=== PATIENT | female | born 1970 | race Caucasian/White ===

== ENCOUNTER 2019-12-18 00:19 | Outpatient (CLI) | payer BC, SELFPAY ==
[2019-12-18 18:42] LABS: SARS-CoV-2 RNA PCR Negative
== END 2019-12-18 00:20 | disposition home or self-care (01) ==
LOC: ANHCOVIDDT 00:19
PROVIDERS: PCP Family Medicine; Visit Provider Internal Medicine Gastroenterology
DX: Z01.812 Encounter for preprocedural laboratory examination (principal); Z20.828 Contact with and (suspected) exposure to other viral communicable diseases
CPT/HCPCS: 87635; C9803; U0003

== ENCOUNTER 2019-12-20 01:05 | Day surgery (SDC) | payer BC, SELFPAY ==
[2019-12-13 12:10] VITALS: BMI 25.4
[2019-12-20 07:39] VITALS: BP 119/77; PULSE 70; RESP 20; TEMP 36; O2SAT 99; BMI 24.9
--- NOTE | 2019-12-20 07:52 | PM.HPGS ---
History of Present Illness History of Present Illness Consent: Risks, benefits, and alternatives have been discussed and questions answered. Patient agrees to proceed with procedure. Chief complaint: Neoplasm Screening Narrative: Brendan Bishop is a 49 year old female referred for screening colonoscopy. Meds Home Medications and Allergies Home Medications Medication Instructions Recorded Confirmed Type ergocalciferol (vitamin D2) 50,000 unit PO WEEKLY 12/13/19 12/20/19 History estradiol 1 mg PO DAILY 12/13/19 12/20/19 History multivitamin,vl-[id number] 1 tablet PO DAILY 12/13/19 12/20/19 History [Complete Multivitamin] sertraline 50 mg PO DAILY 12/13/19 12/20/19 History valacyclovir 500 mg PO DAILY 12/13/19 12/20/19 History Allergies Allergy/AdvReac Type Severity Reaction Status Date / Time codeine Allergy Mild Headache Verified 12/20/19 07:43 Vital Signs Vital Signs - 24 hr 12/20/19 07:39 Temperature 36.0 C L Pulse Rate 70 Respiratory Rate 20 Blood Pressure 119/77 Pulse Oximetry 99 Exam Resp: Auscultation: clear to auscultation bilaterally Cardio: Rate: regular rate Rhythm: regular rhythm GI: GI Palp: Yes Soft to palpation and No Tenderness to palpation present (GI) Assessment and Plan Assessment and plan (1) Colon cancer screening: Code(s): Z12.11 - Encounter for screening for malignant neoplasm of colon Status: Acute Assessment and Plan: Colonoscopy with possible biopsy or polypectomy or cautery or injection of substances.
[2019-12-20] MEDS: LACTATED RINGERS 1,000 ML 150 ML IV CONT (07:59)
--- NOTE | 2019-12-20 08:18 | P.PNAN_ITS ---
Anes - Initial Pre Proc Eval Procedure: Operation Date: 12/20/19 08:30 Proposed Procedures p Screening Colonoscopy - Tony Delcid MD Date/Time: 12/20/19 08:18 Surgeon: Tony Delcid MD Pre Op Diagnosis: Neoplasm Screening Patient Data Age: 49 Gender: F Height: 5 ft 8 in Weight: 74.3 kg Last Vital Signs Temp 96.8 F L 12/20/19 07:39 Pulse 70 12/20/19 07:39 Resp 20 12/20/19 07:39 BP 119/77 12/20/19 07:39 Pulse Ox 99 12/20/19 07:39 Allergies Allergy/AdvReac Type Severity Reaction Status Date / Time codeine Allergy Mild Headache Verified 12/20/19 07:43 Home Medications Medication Instructions Recorded Confirmed Type ergocalciferol (vitamin D2) 50,000 unit PO WEEKLY 12/13/19 12/20/19 History estradiol 1 mg PO DAILY 12/13/19 12/20/19 History multivitamin,cl-rnti-[id number] 1 tablet PO DAILY 12/13/19 12/20/19 History [Complete Multivitamin] sertraline 50 mg PO DAILY 12/13/19 12/20/19 History valacyclovir 500 mg PO DAILY 12/13/19 12/20/19 History Patient hx anesthesia problems: none Family hx anesthesia problems: none [facility] Past Medical History Medical History (Updated 12/20/19 @ 08:18 by Kasi Jreome MD) Arthritis Anes - Eval Final PreProcedure Day of Procedure 12/20/19 08:18 Patient weight: normal Heart: regular rate and rhythm Lungs: clear to auscultation Airway: Mallampati scale class II Neurological: alert and oriented Last oral intake: >/= 8 hours ASA classification: II Emergent: no Anesthetic plan: proceed Anesthesia type and monitoring: general GIVS and standard monitoring Informed Consent: The patient's anesthetic plan and its attendant risks and benefits were discussed with the patient/family/POA. Questions were solicited and answers provided to the satisfaction of the patient/family/POA.
[2019-12-20 08:47] VITALS: BP 88/60; PULSE 56; RESP 16; O2SAT 98
[2019-12-20 08:57] VITALS: BP 94/74; PULSE 54; RESP 16; O2SAT 98
== END 2019-12-20 09:31 | disposition home or self-care (01) ==
PROVIDERS: PCP Family Medicine; Referring Provider Obstetrics & Gynecology Gynecology; Visit Provider Internal Medicine Gastroenterology
PROC: 0DJD8ZZ Inspection of Lower Intestinal Tract, Via Natural or Artificial Opening Endoscopic (ICD-10-PCS; CPT 45378; principal; 2019-12-20 08:30)
DX: Z12.11 Encounter for screening for malignant neoplasm of colon (principal); K57.30 Diverticulosis of large intestine without perforation or abscess without bleeding; M19.90 Unspecified osteoarthritis, unspecified site; Z79.899 Other long term (current) drug therapy
CPT/HCPCS: G0121; J2704; J7120

== ENCOUNTER 2023-05-08 10:29 | Emergency (ER) | payer BC, SELFPAY ==
--- NOTE | 2023-05-08 10:41 | ED.GENADULT ---
HPI - General Adult General Chief complaint: Upper Respiratory Infection Stated complaint: sorethroat Source: patient, RN notes reviewed and old records reviewed Mode of arrival: ambulatory Limitations: no limitations History of Present Illness HPI narrative: 53-year-old female presents to [facility] with complaint of myalgias and general malaise started on Monday, then sore throat and congestion started Monday. patient states felt feverish but never took her temperature. Patient has not taken anything for symptoms. Patient states worried may have COVID. MD complaint: sore throat Onset (ago): day(s) (2) Related Data Home Medications Medication Instructions Recorded Confirmed ergocalciferol (vitamin D2) 1,250 50,000 unit PO WEEKLY 12/13/19 05/08/23 mcg (50,000 unit) capsule estradiol 1 mg tablet 1 mg PO DAILY 12/13/19 05/08/23 multivitamin,bq-exmf-bpmilqtj 1 tablet PO DAILY 12/13/19 05/08/23 (Complete Multivitamin tablet) sertraline 50 mg tablet 50 mg PO DAILY 12/13/19 05/08/23 valacyclovir 500 mg tablet 500 mg PO DAILY 12/13/19 05/08/23 cetirizine 10 mg tablet (Zyrtec) 10 mg PO DAILY 05/08/23 05/08/23 Allergies Allergy/AdvReac Type Severity Reaction Status Date / Time codeine Allergy Mild Headache Verified 05/08/23 10:45 Review of Systems Constitutional: Constitutional: Reports no additional constitutional complaints, Reports body ache(s), Denies chills, Reports fatigue, Reports fever(s) ( patient states feeling feverish) and Denies headache(s) Eyes: Eyes: Reports no additional eye complaints and Denies blurry vision ENT: Reports system reviewed and no additional complaints, except as documented, Denies vertigo, Denies dizziness, Denies ear discharge, Denies otalgia, Denies facial pain, Denies headache(s), Reports nasal congestion, Denies nasal discharge, Denies sinus pain, Denies sinus pressure and Reports sore throat Cardiovascular: Cardiovascular: Reports no additional cardiovascular complaints, Denies chest pain, Denies chest pain at rest, Denies rapid heart rate and Denies dyspnea Respiratory: Respiratory: Reports no additional respiratory complaints, Denies chest congestion, Reports cough, Denies pain on inspiration, Denies pain with cough and Denies dyspnea Gastrointestinal: Gastrointestinal: Denies abdominal pain, Denies diarrhea, Denies nausea and Denies vomiting Integumentary/Breasts: Skin/Breast: Denies rash Neurologic: Reports system reviewed and no additional complaints, except as documented, Denies vertigo, Denies dizziness and Denies headache(s) Endocrine: Endocrine: Denies fatigue PMFSH Past Medical History Medical History Arthritis Comments At the time of my signature, I reviewed and agree with the nursing past medical, surgical, social, and family history. There is no relevant family history pertinent to the patient complaint. Exam Const: General: cooperative, healthy appearing, no acute distress and well nourished Nutritional Appearance: well nourished Orientation/consciousness: patient oriented x3 Limitations: no limitations HENMT: Head: normal to inspection and normocephalic Ears: external ears normal, TM's normal bilaterally, mastoids normal and Abnormal EAC present Face/Nose/Sinus: normal facial exam Face and sinus: normal facial exam Mouth: Yes Normal oral and palatal mucosa present, Yes oropharynx normal and Yes moist mucous membranes Throat: tonsils normal, uvula midline, posterior oropharynx abnormal erythema and no uvular edema Eyes: General: appearance normal, both eyes and all related structures Sclera: sclerae normal Pupils: Equal, round and reactive pupils present Resp: Effort & Inspection: normal respiratory effort, able to speak in complete sentences, no audible wheezes, no cough, no respiratory distress and no retractions Auscultation: clear to auscultation bilaterally, no crackles, no rales, no rhonchi and
[2023-05-08 10:44] VITALS: BP 119/68; PULSE 68; RESP 18; TEMP 36.3; O2SAT 97
== END 2023-05-08 11:05 | disposition home or self-care (01) ==
PROVIDERS: Emergency Provider Registered Nurse; PCP Family Medicine
DX: U07.1 COVID-19 (principal); J45.909 Unspecified asthma, uncomplicated
CPT/HCPCS: 87081; 87426; 87804; 87880; 99213; C9803; G0463

== ENCOUNTER 2024-06-03 17:42 | Emergency (ER) | payer BC, SELFPAY ==
--- OUTSIDE RECORDS SUMMARY | 2024-06-03 18:20 | XMS_ITS ---
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 Past Plans No past plan information found. Radiation Treatments * No radiation treatments are documented for this patient in [facility]. Treatments may have been administered in another system. Lifetime Dose Tracking * Chemical Lifetime Dose Automatic Entry Manual Entr y DLP 9,024 mGycm 9,024 mGycm 0 mGycm
--- OUTSIDE RECORDS SUMMARY | 2024-06-03 18:20 | XMS_ITS | Referral Summary ---
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); Malignant melanoma of back (HCC) 04/15/2024 12:00 PM COST ESTIMATING MANAGER Office Visit [facility] Floor [address] [place] [address] Joey Horne MD 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); Malignant melanoma of back (HCC) 04/15/2024 8:54 AM COST ESTIMATING MANAGER - 04/15/2024 11:59 PM COST ESTIMATING MANAGER Hospital Encounter [facility] [place] [facility] [place] [facility] Floor [address] [place] [address] 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); Malignant melanoma of back (HCC) Discharge Disposition: Discharge to home or self care from Last 3 Months Allergies Active Allergy Reactions Criticality Noted Date Comments Codeine Headache Low 10/19/2017 Medications sertraline (ZOLOFT) 50 mg tablet TK 1 T PO QAM 0 04/10/2018 Active estradiol (ESTRACE) 1 mg tablet TK 1 T PO QD 0 08/09/2018 Active valACYclovir (VALTREX) 500 mg tablet TK 1 T PO D 1 08/26/2018 Active ergocalciferol (VITAMIN D) 50,000 unit capsule TK 1 C PO Q WEEK 01/29/2020 Active cetirizine HCl (ZYRTEC ORAL) Take by mouth daily Active calcium phosphate-vitami n D3 250 mg-12.5 mcg (500 unit) tablet,chewable Take by mouth Active Active Problems Problem Noted Date Diagnosed Date History of malignant melanoma 01/15/2016 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 09/29/2015 Immunizations Name Administration Dates Next Due Tdap 09/04/2018 Social History Tobacco Use Types Packs/Day Years Used Date Smoking Tobacco: Former Smokeless Tobacco: Never Comments Unknown Sex and Gender Information Value Date Recorded Sex Assigned at Not on file Legal Sex Female 8:05 AM COST ESTIMATING MANAGER Gender Identity Not on file Sexual Orientation Straight 09/25/2018 9: 53 AM CDT Last Filed Vital Signs Vital Sign Reading Time Taken Comments Blood Pressure 108/75 04/15/2024 11:34 AM COST ESTIMATING MANAGER Pulse 73 04/15/2024 11:34 AM COST ESTIMATING MANAGER Temperature 36.3 ??C (97.4 ??F) 04/15/2024 11:[address] Respiratory Rate 18 04/15/2024 11:34 AM COST ESTIMATING MANAGER Oxygen Saturation 97% 04/15/2024 11:34 AM COST ESTIMATING MANAGER Inhaled Oxygen Concentration - - Weight 78.5 kg (173 lb) 04/15/2024 11:34 AM COST ESTIMATING MANAGER Height 171.5 cm (5' 7.52 ) 04/17/2023 10:[address] Body Mass Index 26.68 04/17/2023 10:55 AM COST ESTIMATING MANAGER Plan of Treatment Not on file Procedures Procedure Name Priority Date/Time Associated Diagnosis Comments EGFR Routine 04/15/2024 9:41 AM COST ESTIMATING MANAGER 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 (HCC) DIFFERENTIAL AUTO Routine 04/15/2024 9:4 1 AM COST ESTIMATING MANAGER 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 (HCC) LACTATE DEHYDROGENASE Routine 04/15/2024 9:41 AM COST ESTIMATING MANAGER 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 (HCC) COMPREHENSIVE METABOLIC PANEL Routine 04/15/2024 9:41 AM COST ESTIMATING MANAGER 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 (HCC) CBC WITH AUTO DIFFERENTIAL Routine 04/15/2024 9:41 AM COST ESTIMATING MANAGER 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 73 m2 Comment: Interpretive Data Reference Interval Normal ?>/= 90 mL/min/1.73m2 Mildly decreased* ? 60 - 89 mL/min/1.73m2 Mildly to moderately decreased ?45 - 59 mL/min/1.73m2 Moderately to severely decreased ??30 - 44 mL/min/1.73m2 Severely decreased ?15 - 29 mL/min/1.73m2 Kidney Failure ?< 15 ??mL/min/1.73m2 *Relative to young adult level Estimated glomerular filtration rate is determined by the 2020 CKD-EPI equation recommended by the National Kidney Foundation (A Unifying Approach to GFR Estimation: Recommendations of the NKF-ASK Task Force on Reassessing the Inclusion of Race in Diagnosing Kidney Disease, JASN 202). The CKD-EPI equation should not be used for patients with unstable renal function and has not been validated in children and those over 70. Current interpretive data was last reviewed 2021. Blood 04/15/2024 9:41 AM COST ESTIMATING MANAGER 04/15/2024 9:45 AM COST ESTIMATING MANAGER us Marcelo Soto NP LAB BLOOD ORDERABLES Ml aparicio Result [facility] Department [place] [address] * Differential, auto (04/15/2024 9:41 AM COST ESTIMATING MANAGER) Neutrophil abs 2.0 1.5 - 6.5 K/cumm Comment:Testing performed by : [facility], [address] [place] [phone] Lymphocyte abs 1.2 0.8 - 3.3 K/cumm [facility] Comment:Testing performed by : [facility], [address] [place] [phone] Monocyte abs 0.4 0.2 - 0.8 K/cumm [facility] Comment:Testing performed by : [facility], [address] [place] [phone] Eosinophil abs 0.0 0.0 - 0.5 K/cumm [facility] Comment:Testing performed by : [facility], [address] [place] [phone] Basophil abs 0.0 0.0 - 0.1 K/cumm [facility] Comment:Testing performed by : [facility], [address] [place] [phone] Neutrophil pct 55.5 % [facility] Comment: Interpretive Data Percent cell count reference ranges are not reported, since discordance with absolute values may lead to misinterpretation of CBC data. Current Interpretive Data was last revised on 2017. Testing performed by: [facility], [address] [place] [phone] Lymphocyte pct 31.7 % [facility] Comment: Interpretive Data Percent cell count reference ranges are not reported, since discordance with absolute values may lead to misinterpretation of CBC data. Current Interpretive Data was last revised on 2017. Testing performed by: [facility], [address] [place] [phone] Monocyte pct 11.5 % [facility] Comment: Interpretive Data Percent cell count reference ranges are not reported, since discordance with absolute values may lead to misinterpretation of CBC data. Current Interpretive Data was last revised on 2017. Testing performed by: [facility], [address] [place], [place] [phone] Eosinophil pct 0.3 % [facility] Comment: Interpretive Data Percent cell count reference ranges are not reported, since discordance with absolute values may lead to misinterpretation of CBC data. Current Interpretive Data was last revised on 2017. Testing performed by: [facility], [address] [place] [phone] Basophil pct 1.0 % [facility] Comment: Interpretive Data Percent cell count reference ranges are not reported, since discordance with absolute values may lead to misinterpretation of CBC data. Current Interpretive Data was last revised on 2017. Testing performed by: [facility], [address] [place] [phone] Blood 04/15/2024 9:41 AM COST ESTIMATING MANAGER 04/15/2024 9:44 AM COST ESTIMATING MANAGER Marcelo Soto INTERNET MARKETING COORDINATOR LAB BLOOD ORDERABLES Ml l Result [facility] Department [place] [address] * (ABNORMAL) CBC with auto differential (04/15/2024 9:41 AM COST ESTIMATING MANAGER) WBC 3.6(L) 3.8 - 9.9 K/cumm Comment:Testing performed by : [facility], [address] [place] [phone] Hgb 13.3 11.9 - 15.5 g/dL [facility] Comment:Testing performed by : [facility], [address] [place], [place] [phone] Hct 39.2 35.6 - 45.5 % [facility] Comment:Testing performed by : [facility], [address] [place], [place] [phone] Plt 237 150 - 400 K/cumm [facility] Comment:Testing performed by : [facility], [address] [place], [place] [phone] MPV 7.3 6.8 - 10.4 fL [facility] Comment:Testing performed by : [facility], [address] [place], [place] [phone] RBC 4.05 3.90 - 5.20 M/cumm [facility] Comment:Testing performed by : [facility], [address] [place], [place] [phone] MCV 96.9(H) 81.3 - 96.4 fL [facility] Comment:Testing performed by : [facility], [address] [place], [place] [phone] MCH 32.8 27.1 - 33.3 pg [facility] Comment:Testing performed by : [facility], [address] [place], [place] [phone] MCHC 33.9 32.3 - 35.7 g/dL [facility] Comment:Testing performed by : [facility], [address] [place], [place] [phone] RDW CV 12.6 11.1 - 14.9 % [facility] Comment:Testing performed by : [facility], [address] [place], [place] [phone] NRBC abs 0.00 0.00 - 0.01 K/cumm [facility] Comment:Testing performed by : [facility], [address] [place], [place] [phone] Blood 04/15/2024 9:41 AM COST ESTIMATING MANAGER 04/15/2024 9:44 AM COST ESTIMATING MANAGER Marcelo R. Wischmeier INTERNET MARKETING COORDINATOR LAB BLOOD ORDERABLES Ml l Result Performing Organization Address City/[facility] Co de Phone Number [facility] Department [place] [address] * Lactate dehydrogenase (LD) (04/15/2024 9:41 AM COST ESTIMATING MANAGER) [facility] [address] Lactate dehydrogenase (LDH) 146 100 - 250 Units/L Blood 04/15/2024 9:41 AM COST ESTIMATING MANAGER 04/15/2024 9:45 AM COST ESTIMATING MANAGER Marcelo Soto INTERNET MARKETING COORDINATOR LAB BLOOD ORDERABLES Ml l Result Performing Organization Address [facility] de Phone Number [facility] Department [place] [address] * (ABNORMAL) Comprehensive metabolic panel (04/15/2024 9:41 AM COST ESTIMATING MANAGER) [facility] [address] Sodium 134(L) 135 - 145 mmol/L Potassium, pl 4.1 3.3 - 4.9 mmol/L [facility] Chloride 102 97 - 110 mmol/L [facility] CO2 27 22 - 32 mmol/L [facility] Anion gap 5 2 - 15 mmol/L [facility] BUN 18 6 - 25 mg/dL [facility] Creatinine 0.74 0.60 - 1.10 mg/dL [facility] Glucose 97 70 - 199 mg/dL [facility] Comment: Interpretive Data Fasting glucose >/= 126 mg/dl is diagnostic for diabetes. ?? Fasting is defined as no caloric intake for at least 8 hours. Fasting glucose between 100 mg/dl to 125 mg/dl is diagnostic of prediabetes. In a patient with classic symptoms of hyperglycemia or hyperglycemic crisis, a random glucose >/= 200 mg/dl is diagnostic for diabetes. In the absence of unequivocal hyperglycemia, results should be confirmed by repeat testing. The classification and Diagnosis of Diabetes Diabetes Care 2021; 46: S19-S40. Current interpretive data was last revised 2022. Calcium 8.9 8.5 - 10.3 mg/dL [facility] Bilirubin, total 0.7 0.1 - 1.2 mg/dL [facility] Protein, pl 6.8 6.5 - 8.5 g/dL [facility] Albumin 4.0 3.5 - 5.0 g/dL [facility] Alk phos 47 40 - 130 Units/L [facility] ALT 10 7 - 45 Units/L [facility] AST 17 10 - 45 Units/L [facility] Blood 04/15/2024 9:41 AM COST ESTIMATING MANAGER 04/15/2024 9:45 AM COST ESTIMATING MANAGER us Marcelo Soto NP LAB BLOOD ORDERABLES Ml aparicio Result [facility] Department [place] [address] * CT Chest Abdomen Pelvis W Contrast (04/15/2024 9:24 AM COST ESTIMATING MANAGER) Anatomical Region Laterality Modality Body N/A Computed Tomogra phy 04/15/2024 9:49 AM COST ESTIMATING MANAGER Impressions 04/15/2024 10:01 AM COST ESTIMATING MANAGER No evidence metastatic disease in the chest, abdomen, or pelvis. Dictated by: Familia Torres MD The radiology attending physician has personally reviewed this study, and had reviewed and/or edited this written report and agrees with it. Electronically signed by: Yaima Culver M.D. Narrative 04/15/2024 10:01 AM COST ESTIMATING MANAGER EXAMINATION: ??Computed tomography of the chest, abdomen and pelvis with intravenous contrast HISTORY: 54-year-old with history of melanoma to the right back, restaging TECHNIQUE: ??Transaxial computed tomographic images of the chest, abdomen and pelvis were obtained with intravenous contrast according to the standard protocol after the uneventful administration of 70 mL Opti-Ray 350 intravenous contrast. COMPARISON: Comparison is made to 04/17/2023. FINDINGS: ?? Chest: No supraclavicular, axillary or mediastinal lymphadenopathy. ??The heart is normal size without pericardial effusion. ??Thoracic aorta and main pulmonary artery calibers are normal. ??Minimal atherosclerotic coronary artery calcifications. ??Patent central airways. ??The esophagus is nondistended. No suspicious pulmonary nodules. ??No pleural effusion or pneumothorax. Abdomen and pelvis: Ill-defined hypoattenuating lesion in hepatic segment 5/6 likely represents a hemangioma. ??No suspicious liver lesion. ??The gallbladder, adrenal glands, spleen, and pancreas are normal. ??The stomach and duodenum are normal. Kidneys enhance symmetrically without hydronephrosis. ??The urinary bladder is normal. ??No free fluid or pneumoperitoneum. ??No adnexal mass. The bowel is normal caliber without evidence of obstruction. ??No abdominal or pelvic lymphadenopathy. ??The abdominal aorta is normal in course and caliber. No suspicious osseous lesion. ??Unchanged minimal soft tissue thickening in the subcutaneous soft tissues in the right flank (series 2 image 180) likely represents treatment related change. Procedure Note Yaima Culver MD - 04/15/2024 EXAMINATION: Computed tomography of the chest, abdomen and pelvis with intravenous contrast HISTORY: 54-year-old with history of melanoma to the right back, restaging TECHNIQUE: Transaxial computed tomographic images of the chest, abdomen and pelvis were obtained with intravenous contrast according to the standard protocol after the uneventful administration of 70 mL Opti-Ray 350 intravenous contrast. COMPARISON: Comparison is made to 04/17/2023. FINDINGS: Chest: No supraclavicular, axillary or mediastinal lymphadenopathy. The heart is normal size without pericardial effusion. Thoracic aorta and main pulmonary artery calibers are normal. Minimal atherosclerotic coronary artery calcifications. Patent central airways. The esophagus is nondistended. No suspicious pulmonary nodules. No pleural effusion or pneumothorax. Abdomen and pelvis: Ill-defined hypoattenuating lesion in hepatic segment 5/6 likely represents a hemangioma. No suspicious liver lesion. The gallbladder, adrenal glands, spleen, and pancreas are normal. The stomach and duodenum are normal. Kidneys enhance symmetrically without hydronephrosis. The urinary bladder is normal. No free fluid or pneumoperitoneum. No adnexal mass. The bowel is normal caliber without evidence of obstruction. No abdominal or pelvic lymphadenopathy. The abdominal aorta is normal in course and caliber. No suspicious osseous lesion. Unchanged minimal soft tissue thickening in the subcutaneous soft tissues in the right flank (series 2 image 180) likely represents treatment related change. IMPRESSION: No evidence metastatic disease in the chest, abdomen, or pelvis. Dictated by: Familia Torres MD The radiology attending physician has personally reviewed this study, and had reviewed and/or edited this written report and agrees with it. Electronically signed by: Yaima Culver M.D. us Marcelo Soto INTERNET MARKETING COORDINATOR IMG CT PROCEDURES Final R esult * POCT creatinine (04/15/2024 9:09 AM COST ESTIMATING MANAGER) Creatinine POC 0.8 0.6 - 1.1 mg/dL Blood 04/15/2024 9:09 AM COST ESTIMATING MANAGER 04/15/2024 9:09 AM COST ESTIMATING MANAGER us Self Referral LAB POCT ORDERABLES - DEVICE Fin al Result Performing Organization Address City/State/[facility] Co de Phone Number [facility] [place] [address] from Last 3 Months Insurance [facility] [place] Care Teams Open Hearth Door Liner Relationship Specialty Start Date End Date Carol Garcia MD PCP - General 08/23/17
--- OUTSIDE RECORDS SUMMARY | 2024-06-03 18:20 | XMS_ITS | Clinical Summary ---
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); Malignant melanoma of back (HCC) 04/15/2024 11:15 AM NETWORK APPLICATIONS SPECIALIST Lab [facility] - Lab Collection [address] [place] [address] 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); Malignant melanoma of back (HCC) 04/15/2024 8:54 AM NETWORK APPLICATIONS SPECIALIST - 04/15/2024 11:59 PM NETWORK APPLICATIONS SPECIALIST Hospital Encounter [facility] - [place] [address] [place] [address] 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); Malignant melanoma of back (HCC) Discharge Disposition: Discharge to home or self care from Last 3 Months Immunizations Name Administration Dates Next Due Tdap 09/04/2018 Surgical History Surgery Date Site/Laterality Comments US UNLISTED PROCEDURE LYMPH SYSTEM 10/20/2015 N/A Family History Medical History Relation Name Comments Stomach cancer Maternal Grandfather Breast cancer Mother's Sister Non-Hodgkin's Lymphoma Paternal Grandmother Relation Name Status Comments Maternal Grandfather Mother's Sister Alive Paternal Grandmother Social History Tobacco Use Types Packs/Day Years Used Date Smoking Tobacco: Former Smokeless Tobacco: Never Comments Unknown Sex and Gender Information Value Date Recorded Sex Assigned at Not on file Legal Sex Female 8:05 AM NETWORK APPLICATIONS SPECIALIST Gender Identity Not on file Sexual Orientation Straight 09/25/2018 9: 53 AM CDT Obstetrics History Last Filed Vital Signs Vital Sign Reading Time Taken Comments Blood Pressure 108/75 04/15/2024 11:34 AM NETWORK APPLICATIONS SPECIALIST Pulse 73 04/15/2024 11:34 AM NETWORK APPLICATIONS SPECIALIST Temperature 36.3 ??C (97.4 ??F) 04/15/2024 11:[address] Respiratory Rate 18 04/15/2024 11:34 AM NETWORK APPLICATIONS SPECIALIST Oxygen Saturation 97% 04/15/2024 11:34 AM NETWORK APPLICATIONS SPECIALIST Inhaled Oxygen Concentration - - Weight 78.5 kg (173 lb) 04/15/2024 11:34 AM NETWORK APPLICATIONS SPECIALIST Height 171.5 cm (5' 7.52 ) 04/17/2023 10:[address] Body Mass Index 26.68 04/17/2023 10:55 AM NETWORK APPLICATIONS SPECIALIST Plan of Treatment Health Maintenance Due Date Last Done Comments Cervical Cancer Screening 1968 Colon Cancer Screening-Colonoscopy 1968 Depression Screening 1968 Hepatitis C Screening 1968 Pneumococcal vaccine <65 (1 of 2 - PCV) 02/07/1974 Hepatitis B Screening 02/07/1986 Regular Well Visit/Exam 18-64 02/07/1986 Zoster Vaccine (1 of 2) 02/07/1987 Covid-19 Vaccine (3 - Modern a risk series) 12/03/2020 11/05/2020, 09/15/2020 Influenza Vaccine (#1) 2024 Breast Cancer Screening-Mammogram 09/27/2024 09/28/2023, 09/28/2023, 07/07/2021, Additional history exists DTaP/Tdap/Td Vaccine (2 - Td or Tdap) 09/04/2028 09/04/2018 Procedures Procedure Name Priority Date/Time Associated Diagnosis Comments EGFR Routine 04/15/2024 9:41 AM NETWORK APPLICATIONS SPECIALIST 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 (HCC) DIFFERENTIAL AUTO Routine 04/15/2024 9:4 1 AM NETWORK APPLICATIONS SPECIALIST 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 (HCC) LACTATE DEHYDROGENASE Routine 04/15/2024 9:41 AM NETWORK APPLICATIONS SPECIALIST 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 (HCC) COMPREHENSIVE METABOLIC PANEL Routine 04/15/2024 9:41 AM NETWORK APPLICATIONS SPECIALIST 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 (HCC) CBC WITH AUTO DIFFERENTIAL Routine 04/15/2024 9:41 AM NETWORK APPLICATIONS SPECIALIST 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 73 m2 Comment: [...] of Race in Diagnosing Kidney Disease, JASN 2020). The CKD-EPI equation should not be used for patients with unstable renal function and has not been validated in children and those over 70. Current interpretive data was last reviewed 2021. Blood 04/15/2024 9:41 AM NETWORK APPLICATIONS SPECIALIST 04/15/2024 9:45 AM NETWORK APPLICATIONS SPECIALIST us Marcelo Soto NP LAB BLOOD ORDERABLES Ml aparicio Result Performing Organization Address City/State/[facility] Co de Phone Number [facility] Department [place] [address] * Differential, auto (04/15/2024 9:41 AM NETWORK APPLICATIONS SPECIALIST) Neutrophil abs 2.0 1.5 - 6.5 K/cumm Comment:Testing performed by : [facility], [address] [place] [phone] Lymphocyte abs 1.2 0.8 - 3.3 K/cumm ANKUSH ADKINS Comment:Testing performed by : [facility], [address] [place] [phone] Monocyte abs 0.4 0.2 - 0.8 K/cumm [facility] Comment:Testing performed by : [facility], [address] [place] [phone] Eosinophil abs 0.0 0.0 - 0.5 K/cumm [facility] Comment:Testing performed by : [facility], [address] [place] [phone] Basophil abs 0.0 0.0 - 0.1 K/cumm [facility] Comment:Testing performed by : [facility], [address] [place] [phone] Neutrophil pct 55.5 % [facility] Comment: Interpretive Data Percent cell count reference ranges are not reported, since discordance with absolute values may lead to misinterpretation of CBC data. Current Interpretive Data was last revised on 2017. Testing performed by: [facility], [address] [place] [phone] Lymphocyte pct 31.7 % [facility] Comment: Interpretive Data Percent cell count reference ranges are not reported, since discordance with absolute values may lead to misinterpretation of CBC data. Current Interpretive Data was last revised on 2017. Testing performed by: [facility], [address] [place] [phone] Monocyte pct 11.5 % [facility] Comment: Interpretive Data Percent cell count reference ranges are not reported, since discordance with absolute values may lead to misinterpretation of CBC data. Current Interpretive Data was last revised on 2017. Testing performed by: [facility], [address] [place] [phone] Eosinophil pct 0.3 % [facility] Comment: Interpretive Data Percent cell count reference ranges are not reported, since discordance with absolute values may lead to misinterpretation of CBC data. Current Interpretive Data was last revised on 2017. Testing performed by: [facility], [address] [place] [phone] Basophil pct 1.0 % [facility] Comment: Interpretive Data Percent cell count reference ranges are not reported, since discordance with absolute values may lead to misinterpretation of CBC data. Current Interpretive Data was last revised on 2017. Testing performed by: [facility], [address] [place] [address] Blood 04/15/2024 9:41 AM NETWORK APPLICATIONS SPECIALIST 04/15/2024 9:44 AM NETWORK APPLICATIONS SPECIALIST us Marcelo Soto TREE [employer]PER LAB BLOOD ORDERABLES Ml markus Result [facility] Department [place] [address] * (ABNORMAL) CBC with auto differential (04/15/2024 9:41 AM NETWORK APPLICATIONS SPECIALIST) WBC 3.6(L) 3.8 - 9.9 K/cumm Comment:Testing performed by : [facility], [address] [place] [address] Hgb 13.3 11.9 - 15.5 g/dL [facility]ERST[facility]LEY [facility] Comment:Testing performed by : [facility], [address] [place] [address] Hct 39.2 35.6 - 45.5 % CERSTANLEY [facility] Comment:Testing performed by : [facility], [address] [place] [address] Plt 237 150 - 400 K/cumm CERSTANLEY [facility] Comment:Testing performed by : [facility], [address] [place] [address] MPV 7.3 6.8 - 10.4 fL CERSTANLEY [facility] Comment:Testing performed by : [facility], [address] [place] [address] RBC 4.05 3.90 - 5.20 M/cumm CERSTANLEY [facility] Comment:Testing performed by : [facility], [address] [place] [address] MCV 96.9(H) 81.3 - 96.4 fL [facility]ERSTANLEY [facility] Comment:Testing performed by : [facility], [address] [place], [place] [phone] MCH 32.8 27.1 - 33.3 pg ANKUSH [facility] Comment:Testing performed by : [facility], [address] [place], [place] [phone] MCHC 33.9 32.3 - 35.7 g/dL ANKUSH [facility] Comment:Testing performed by : [facility], [address] [place] [phone] RDW CV 12.6 11.1 - 14.9 % ANKUSH [facility] Comment:Testing performed by : [facility], [address] [place], [place] [phone] NRBC abs 0.00 0.00 - 0.01 K/cumm ANKUSH [facility] Comment:Testing performed by : [facility], [address] [place], [place] [phone] Blood 04/15/2024 9:41 AM NETWORK APPLICATIONS SPECIALIST 04/15/2024 9:44 AM NETWORK APPLICATIONS SPECIALIST Marcelo Soto NP LAB BLOOD ORDERABLES Ml l Result Performing Organization Address City/[facility] Co de Phone Number [facility] Department [place] [address] * Lactate dehydrogenase (LD) (04/15/2024 9:41 AM NETWORK APPLICATIONS SPECIALIST) Lactate dehydrogenase (LDH) 146 100 - 250 Units/L Blood 04/15/2024 9:41 AM NETWORK APPLICATIONS SPECIALIST 04/15/2024 9:45 AM NETWORK APPLICATIONS SPECIALIST Marcelo Soto NP LAB BLOOD ORDERABLES Ml l Result [facility] [place] [address] * (ABNORMAL) Comprehensive metabolic panel (04/15/2024 9:41 AM NETWORK APPLICATIONS SPECIALIST) Sodium 134(L) 135 - 145 mmol/L Potassium, pl 4.1 3.3 - 4.9 mmol/L [facility] Chloride 102 97 - 110 mmol/L [facility] CO2 27 22 - 32 mmol/L [facility] Anion gap 5 2 - 15 mmol/L [facility] BUN 18 6 - 25 mg/dL [facility] Creatinine 0.74 0.60 - 1.10 mg/dL [facility] Glucose 97 70 - 199 mg/dL [facility] Comment: Interpretive Data Fasting glucose >/= 126 [...] 2022. Calcium 8.9 8.5 - 10.3 mg/dL [facility] Bilirubin, total 0.7 0.1 - 1.2 mg/dL [facility] Protein, pl 6.8 6.5 - 8.5 g/dL [facility] Albumin 4.0 3.5 - 5.0 g/dL [facility] Alk phos 47 40 - 130 Units/L [facility] ALT 10 7 - 45 Units/L [facility] AST 17 10 - 45 Units/L [facility] Blood 04/15/2024 9:41 AM NETWORK APPLICATIONS SPECIALIST 04/15/2024 9:45 AM NETWORK APPLICATIONS SPECIALIST us Marcelo Soto NP LAB BLOOD ORDERABLES Ml aparicio Result [facility] Department [place] [address] * CT Chest Abdomen Pelvis W Contrast (04/15/2024 9:24 AM NETWORK APPLICATIONS SPECIALIST) Anatomical Region Laterality Modality Body N/A Computed Tomogra phy 04/15/2024 9:49 AM NETWORK APPLICATIONS SPECIALIST Impressions 04/15/2024 10:01 AM NETWORK APPLICATIONS SPECIALIST No evidence metastatic disease in the chest, abdomen, or pelvis. Dictated by: Familia Torres MD The radiology attending physician has personally reviewed this study, and had reviewed and/or edited this written report and agrees with it. Electronically signed by: Yaima Culver M.D. Narrative 04/15/2024 10:01 AM NETWORK APPLICATIONS SPECIALIST EXAMINATION: ??Computed tomography of the chest, abdomen [...] it. Electronically signed by: Yaima Culver M.D. Marcelo Soto NP IMG CT PROCEDURES Final R esult * POCT creatinine (04/15/2024 9:09 AM NETWORK APPLICATIONS SPECIALIST) Creatinine POC 0.8 0.6 - 1.1 mg/dL Blood 04/15/2024 9:09 AM NETWORK APPLICATIONS SPECIALIST 04/15/2024 9:09 AM NETWORK APPLICATIONS SPECIALIST us Self Referral LAB POCT ORDERABLES - DEVICE Fin al Result ANKUSH [facility] Department [place] [address] from Last 3 Months Insurance [facility] Address: [address] [place] [address] [place] Care Teams Guinea Pig Breeder Relationship Specialty Start Date End Date Carol Garcia MD PCP - General 08/23/17
--- OUTSIDE RECORDS SUMMARY | 2024-06-03 18:20 | XMS_ITS | Continuity of Care Document ---
Author Organization [facility] Address [address] [place] [address]. [place] [address] [place] [address] Care Team Providers Care Professor Of Sociology Name Role Phone Carol Garcia DO Primary Care Provider [phone] Encounters Date Type Department Care Team Description 04/19/2024 Ybrainhart Message Enc [facility] [place] [address], [address] [place] [address] Carol Garcia DO Annual exam with [facility] 04/15/2024 Scan [facility] HEALTH INFO SRVCS Scanned, Doc [facility] Lab (SCAN) 09/28/2023 Travel 09/28/2023 10:30 AM CDT - 09/28/2023 11:59 PM CDT Hospital Encounter [facility] Mammography [address] [place] [address] Carol Garcia DO Discharge Disposition: Home or Self Care (Routine Discharge) 05/08/2023 Scan [facility] HEALTH INFO SRVCS Scanned, Doc [facility] Lab (SCAN) 05/08/2023 Scan [facility] HEALTH INFO SRVCS Scanned, Doc [facility] Lab (SCAN) 02/09/2023 Travel 02/09/2023 2:40 PM CDT Office Visit [facility] [place] [address] [place] [address] Scotty Edmondson MD Elbow Pain (Rt elbow ) 12/29/2022 Travel 12/29/2022 2:00 PM CDT Office Visit [facility] [address] [place] [address] Scotty Edmondson MD Elbow Pain (Rt elbow dextrose ) 12/27/2022 Discharge [facility] [place] [address] Alcides Leon, OTR 11/24/2022 Travel 11/24/2022 10:40 AM CDT Office Visit [facility] Medical [facility] [address] [place] [address] Scotty Edmondson MD Elbow Pain (Rt elbow ) 11/17/2022 Travel 11/17/2022 10:00 AM CDT - 11/17/2022 11:59 PM CDT Hospital Encounter [place] [address] Scotty Edmondson MD Pawloski, Megan M, OTR Elbow Pain Discharge Disposition: Home or Self Care (Routine Discharge) 11/10/2022 [place]phone [place] [address] Alcides Leon, OTR Called To Cancel Office Appt. 10/27/2022 Travel 10/27/2022 8:43 AM CDT - 10/27/2022 11:59 PM CDT Hospital Encounter [facility] [place] [place] [address] Scotty Edmondson MD Pratt, Robin M, OTR Elbow Pain Discharge Disposition: Home or Self Care (Routine Discharge) 10/18/2022 Travel 10/18/2022 10:15 AM CDT - 10/18/2022 11:59 PM CDT Hospital Encounter [facility] [place] [place] [address] Scotty Edmondson MD Pratt, Robin M, OTR Elbow Pain Discharge Disposition: Home or Self Care (Routine Discharge) 10/04/2022 Telephone [facility] [place]patient [place] [address] Alcides Leon, OTR No Show 09/27/2022 Travel 09/27/2022 1:15 PM CDT - 09/27/2022 11:59 PM CDT Hospital Encounter [facility] [place]patient [place] [address] Scotty Edmondson MD Pratt, Robin M, OTR Elbow Pain Discharge Disposition: Home or Self Care (Routine Discharge) 09/16/2022 Travel 09/16/2022 10:00 AM CDT Office Visit [facility] [address] [place] [address] Scotty Edmondson MD 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 When lifting heavy objects it feels like a line or stretching./Discus s if cortisone injection would help) 08/25/2022 Travel 08/25/2022 9:20 AM CDT Office Visit [facility] [address], [address] [place] [phone] Carol Garcia DO Elbow Pain (Patient here today for right elbow pain.) 09/14/2021 Travel 09/14/2021 1:20 PM CDT Office Visit [facility] [address], [address] [place] [phone] Carol Garcia DO Other (Pt is having strange feelings in breast area and in armpits since having COVID) 09/02/2021 Travel 09/02/2021 1:40 PM CDT Telemedicine [facility] [address], [address] [place] [phone] Carol Garcia DO COVID-19 (Pt is covid positive, sinus issues and cough has gotten worse) 07/08/2021 Telephone [facility] [address], [address] [place] [phone] Carol Garcia DO Results (bone density ) 07/07/2021 9:12 AM DRIER TAKE OFF TENDER - 07/07/2021 11:59 PM DRIER TAKE OFF TENDER Hospital Encounter [facility] Mammography [address] [place] [address] Carol Garcia DO Discharge Disposition: Home or Self Care (Routine Discharge) 07/06/2021 Travel 07/05/2021 Travel 05/11/2021 Telephone [facility] [address], [address] [place] [phone] Carol Garcia DO Orders (Bone Density) 05/11/2021 Travel 05/08/2021 Travel 05/03/2021 Patient Self-Triage [facility] [address] [place] [address] [facility] Provider 04/15/2021 Scan HEALTH INFO SRVCS Scanned, Documents 11/05/2020 3:20 PM CDT Flu/Imm Clinic [facility] [address] [facility] [address] [place] [address] 09/22/2020 Scan HEALTH INFO SRVCS Scanned, Documents 09/15/2020 2:10 PM CDT Flu/Imm Clinic [facility] [address] [facility] [address] [place] [address] 09/08/2020 Travel 09/08/2020 9:20 AM CDT Office Visit [facility] [address], [address] [place] [address] Carol Garcia DO Elbow Pain (Pt fell on her elbow a few months ago and now she C/O swelling and extreme pain) 09/07/2020 Telephone [facility] [address], [address] [place] [phone] Carol Garcia DO Problem (right elbow swollen) 06/11/2020 3:00 PM DRIER TAKE OFF TENDER - 06/11/2020 3:11 PM DRIER TAKE OFF TENDER Hospital Encounter [facility] Diagnostic Imaging [address] [place] [address] Carol Garcia, Discharge Disposition: Home or Self Care (Routine Discharge) 06/11/2020 3:12 PM DRIER TAKE OFF TENDER - 06/11/2020 11:59 PM DRIER TAKE OFF TENDER Hospital Encounter [facility] [address] [place] [address] Carol Garcia DO Discharge Disposition: Home or Self Care (Routine Discharge) 06/11/2020 Travel 06/11/2020 2:20 PM DRIER TAKE OFF TENDER Office Visit [facility] [address], [address] [place] [address] Carol Garcia DO Head Injury (Pt fell off a chair and hit her head and her arm. Thinks she has a concussion ) 05/13/2020 11:25 AM DRIER TAKE OFF TENDER Laboratory Only [facility] [address], [address] [place] [phone] 05/13/2020 Patient Self-Triage [facility] DEPARTMENT [facility] [place] [address] Wilbertot, [facility] Provider 03/24/2020 Scan HEALTH INFO SRVCS Scanned, Documents 02/12/2020 Travel 02/12/2020 10:00 AM CDT Office Visit [facility] [address], [address] [place] [address] Carol Garcia DO Dizziness (Pt states this morning she started having severe ep of vertigo and feeling like her head is spinning ) 12/20/2019 Scan [facility] HEALTH INFO SRVCS Scanned, Documents Colonoscopy Report (SCAN) 04/19/2019 Orders Only [facility] [address], [address] [place] [address] Mary Valencia MA 04/19/2019 9:20 AM DRIER TAKE OFF TENDER Office Visit [facility] [address], [address] [place] [address] Carol Garcia DO URI/ENT Symptoms (Pt c/o sinus pressure and congestion. ); Cough (x 1 week); Ear Problem (Pt c/o ear fullness) 03/26/2019 Scan [facility] HEALTH INFO SRVCS Scanned, Documents 03/20/2019 12:04 PM DRIER TAKE OFF TENDER - 03/20/2019 11:59 PM DRIER TAKE OFF TENDER Hospital Encounter [facility] Mammography [address] [place] [address] Carol Garcia DO Discharge Disposition: Home or Self Care (Routine Discharge) 10/02/2018 Scan [facility] HEALTH INFO SRVCS Scanned, Documents Lab (SCAN) 09/04/2018 Scan [facility] HEALTH INFO SRVCS Scanned, Documents 09/04/2018 3:40 PM CDT Office Visit [facility] [address], [address] [place] [phone] Carol Garcia DO Annual (Pt here for annual px. ) 08/31/2018 Orders Only [facility] [address], [address] [place] [phone] Mary Valencia MA 04/17/2018 Scan [facility] HEALTH INFO SRVCS Scanned, Documents 04/17/2018 Scan [facility] HEALTH INFO SRVCS Scanned, Documents 03/13/2018 Scan [facility] Medical Group Kassie Edwards MD 10/19/2017 Abstract [facility] Medical Group 07/20/2017 Abstract [facility] Carol Garcia, 07/20/2017 8:30 AM CDT - 07/20/2017 11:59 PM CDT Hospital Encounter [facility] Mammography [address] [place] [address] Carol Garcia, DO Discharge Disposition: Home or Self Care (Routine Discharge) 07/10/2017 Abstract [facility] Medical Group 07/06/2017 Abstract [facility] [place] [address], [address] [place] [address] Carol Garcia, 07/06/2017 Orders Only [facility] [place] [address] Carol Garcia, 03/11/2017 Scan [place] [address] , Generic Conversion, 12/08/2015 Abstract [facility] [address] [place] [address] Michelle Campuzano APNP 05/13/2014 Abstract [facility] Allergies Active Allergy Reactions Criticality Noted Date Comments Codeine Headache Low 07/06/2017 Medications cetirizine (ZYRTEC) 10 MG tablet Take 1 tablet (10 mg total) by mouth daily. 8 Active valACYclovir 500 MG tablet 8 Active estradiol 1 MG tablet Take 1 tablet (1 mg total) by mouth daily. 4 9 Active Multiple Vitamins-Minera ls (MULTIVITAMIN GUMMIES ADULT OR) Active diclofenac sodium 1 % gelIndications: Olecranon bursitis of right elbow Apply 2 g topically 4 (four) times daily. 100 g 1 1 Active SERTRALINE 50 MG tabletIndicatio ns:Concentratio n deficit TAKE 1 TABLET BY MOUTH EVERY MORNING 90 tablet 3 1 Active vitamin D2, ergocalciferol, (DRISDOL) 1.25 mg capsule Take 1 capsule (1.25 mg total) by mouth once a week. 3 Active omega-3 fatty acid (FISH OIL) 500 MG capsule Take 1 capsule (500 mg total) by mouth daily. 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 Immunizations Name Administration Dates Next Due MODERNA COVID-19 (12+) MRNA, LNP-S, PF, 100 MCG/ 0.5 ML DOSE 11/05/2020,09/15/2020 Tdap (Boostrix) 09/04/2018 Family History Medical History Relation Comments Alcohol Abuse Father Hypertension Father Mental Health Father paranoia scyozpr enia Paranoid Schizophrenia Father Seizures Father Breast Cancer Maternal Aunt Cancer Maternal Grandfather Hypertension Mother Breast Cancer Other Diabetes Paternal Grandfather Cancer Paternal Grandmother Diabetes Paternal Grandmother Non- Hodgkin's lymphoma Paternal Grandmother Relation Status Comments Father Maternal Aunt Maternal Grandfather Mother Other Paternal Grandfather Paternal Grandmother Social History Smoking Status as of 06/03/2024 Tobacco Use Types Packs/Day Years Used Date Smoking Tobacco: Never Assessed AUDIT-C Answer Date Recorded Frequency of Alcohol Consumption Never 08/31/2018 Average Number of Drinks Not on file 019 Frequency of Binge Drinking Not on file 08/07 PHQ-2 Answer Date Recorded Patient Health Questionnaire-2 Score 0 08/25/2022 Sex and Gender Information Value Date Recorded Sex Assigned at Not on file Legal Sex Female 6:40 PM CDT Gender Identity Not on file Sexual Orientation Not on file Last Filed Vital Signs Vital Sign Reading Time Taken Comments Blood Pressure 103/72 02/09/2023 2:49 PM CDT Pulse 72 02/09/2023 2:49 PM CDT Temperature 36.8 ??C (98.2 ??F) 08/25/2022 9:27 AM CD T Respiratory Rate 18 08/25/2022 9:27 AM CDT Oxygen Saturation 98% 08/25/2022 9:27 AM CDT Inhaled Oxygen Concentration - - Weight 77.1 kg (170 lb) 12/29/2022 1:59 PM CDT Height 170.2 cm (5' 7 ) 12/29/2022 1:59 PM CDT Body Mass Index 26.63 12/29/2022 1:59 PM CDT Plan of Treatment Not on file Procedures Procedure Name Priority Date/Time Associated Diagnosis Comments OUTSIDE LAB (SCAN ORDER) 04/15/2024 MG SCREENING W YAO ANMOL DIGI Routine 09/28/2023 11:01 AM CDT Encounter for screening mammogram for malignant neoplasm of breast OUTSIDE LAB COVID-19 (SCAN ORDER) Routine 05/08/2023 OUTSIDE LAB (SCAN ORDER) 05/08/2023 JOINT ASPIRATION/INJECTION Routine 12/29/2022 2:33 PM CDT Lateral epicondylitis of right elbow Elbow pain, chronic, right OUS GUIDE NEEDLE PLCMT ORTHO Routine 12/29/2022 1:59 PM CDT Lateral epicondylitis of right elbow BONE DENSITY/DEXA Routine 07/07/2021 9:5 3 AM DRIER TAKE OFF TENDER Post-menopausal Screening for osteoporosis MG SCREENING W YAO ANMOL DIGI Routine 07/07/2021 9:51 AM DRIER TAKE OFF TENDER Screening mammogram, encounter for CT HEAD WO CON STAT 06/11/2020 3:27 PM DRIER TAKE OFF TENDER Fall, initial encounter Injury of head, initial encounter XR ELBOW RT M3V STAT 06/11/2020 3:27 PM DRIER TAKE OFF TENDER Right elbow pain Fall, initial encounter CORONAVIRUS (COVID 19) Routine 05/13/2020 11:29 AM DRIER TAKE OFF TENDER Encounter for screening laboratory testing for COVID-19 virus GLUCOSE BLOOD, QNT Routine 02/12/2020 Vertigo COLONOSCOPY GENERIC (SCAN ORDER) 12/20/2019 MG SCREENING W YAO ANMOL DIGI Routine 03/20/2019 12:32 PM DRIER TAKE OFF TENDER Annual physical exam Screening for breast cancer OUTSIDE LAB (SCAN ORDER) Routine 10/02/2018 MG SCREENING W YAO ANMOL DIGI Routine 07/20/2017 9:22 AM CDT Breast screening MG SCREENING W YAO ANMOL DIGI Routine 07/20/2017 8:30 AM CDT CULTURE STREP A Routine 12/08/2015 3:33 PM CDT RAPID STREP A STAT 12/08/2015 3:33 PM CDT MG SCREENING ANMOL DIGI Routine 05/13/2014 12:00 AM DRIER TAKE OFF TENDER Results * OUTSIDE LAB (SCAN ORDER) (04/15/2024) Only the most recent of3 resultswithin the time period is included. 04/15/2024 us Doc [facility] Scanned SCANNING Final Resu lt * MG SCREENING W YAO ANMOL DIGI (09/28/2023 11:01 AM CDT) Only the most recent of5 resultswithin the time period is included. Anatomical Region Laterality Modality Breast Bilateral Mammography 09/28/2023 12:1 3 PM CDT Impressions 09/28/2023 12:14 PM CDT IMPRESSION: No suspicious change since the previous exams. Recommendation: 1: Routine Screening ??Bilateral ??in 1 Year Assessment: ACR BI-RADS 2 - BENIGN FINDING(S) Ordered By: CAROL GARCIA Interpreted By: Wei Campuzano MD, 09/28/2023 12:13 PM Narrative 09/28/2023 12:14 PM CDT Examination: Digital screening mammogram with CAD. Clinical history: Asymptomatic patient presents for routine screening. Comparison: 07/07/2021, 03/20/2019, 07/20/2017, 05/13/2014. Technique: Bilateral digital mammograms. The exam was interpreted with the use of a computer-aided detection (CAD) system. ??Additional 3-D tomosynthesis images were acquired. Tissue density: The breast tissue is heterogeneously dense. Findings: The breast tissue is heterogeneously dense. The dense tissue may obscure some lesions mammographically. ?? Benign-appearing calcification noted. No suspicious mass, microcalcification or area of architectural distortion can be identified. From a mammographic standpoint, routine followup in one year would seem adequate. Carol Garcia DO MAMMO Final Result * (ABNORMAL) OUTSIDE LAB COVID-19 (05/08/2023) CORONAVIRUS SARS COV 2 PCR (RESP) DETECTED( Crit) NOT DETECTED [facility] 05/08/2023 us [facility] Scanned SCANNING Final Resu lt [facility] * 25% dextrose prolotherapy injection right extensor tendon bundle origin on the lateral epicondyle (12/29/2022 2:33 PM CDT) Narrative Scotty Edmondson MD - 12/29/2022 2:33 PM CDT Scotty Edmondson MD ? 12/29/2022 ??2:35 PM 25% dextrose prolotherapy injection right extensor tendon bundle origin on the lateral epicondyle Date/Time: 12/29/2022 2:33 PM Performed by: Scotty Edmondson MD Authorized by: Scotty Edmondson MD Indications: pain Body area: elbow Joint: right elbow Local anesthesia used: yes Anesthesia: local infiltration Anesthesia: Local anesthesia used: yes Local Anesthetic: lidocaine 2% without epinephrine Anesthetic total: 1 mL Sedation: Patient sedated: no Preparation: Patient was prepped and draped in the usual sterile fashion. Needle size: 22 G Ultrasound guidance: yes Approach: lateral Patient tolerance: patient tolerated the procedure well with no immediate complications Comments: 1 cc of 50% dextrose mixed with 1 cc of normal saline 22 cc total 25% solution. ??1 cc of this was injected into the lateral extensor tendon bundle after 10 needle fenestrations us Scotty Edmondson MD PROCEDURE/MINOR SURGICAL ORDERA BLES Final Result * OUS GUIDE NEEDLE PLCMT ORTHO (12/29/2022 1:59 PM CDT) Anatomical Region Laterality Modality Ultrasound 12/29/2022 3:06 PM CDT Narrative 12/29/2022 3:06 PM CDT This report does not contain a radiologist's interpretation. Please review associated procedure and/or operative report. Procedure Note Kassie Edwards MD - 12/29/2022 This report does not contain a radiologist's interpretation. Please review associated procedure and/or operative report. us Scotty Edmondson MD ULTRASOUND Final Result * BONE DENSITY/DEXA (07/07/2021 9:53 AM DRIER TAKE OFF TENDER) Anatomical Region Laterality Modality Bone Mammography 07/07/2021 10:1 7 AM DRIER TAKE OFF TENDER Impressions 07/07/2021 10:18 AM DRIER TAKE OFF TENDER IMPRESSION: WHO Classification: osteopenia. FRAX: 0.3% chance of hip fracture and 5.3% chance of major osteoporotic fracture over the next 10 years. Referred By: CAROL GARCIA Interpreted By: Brayden Rodriguez MD, 07/07/2021 10:17 AM Narrative 07/07/2021 10:18 AM DRIER TAKE OFF TENDER Examination: Bone Density Axial Exam Date/Time: 07/07/2021 9:52 AM Reason For Exam: ??Postmenopausal, osteoporosis screening ?? Comparison: None Findings: ??DEXA bone densitometry ?The bone mineral density (BMD) was determined by dual-energy x-ray absorptiometry, the results are as follows: ?AP Lumbar Spine L1 through L4 ?BMD Patient (/[facility]): 1.068 ?T-Score (Standard deviations from young adult peak bone density): 0.2 ?Right femoral neck: ?BMD Patient (/[facility]): 0.714 ?T-Score (Standard deviations from young adult peak bone density): -1.2 ? Total Right femur: ?BMD Patient (/[facility]): 0.894 ? T-Score (Standard deviations from young adult peak bone density): -0.4 Recommendations: All patients should ensure an adequate intake of dietary calcium and vitamin D. The NOF recommend adults under the age of 50 need 1000 mg of calcium and 400-800 IU of vitamin D daily. Effective therapy for the prevention and treatment of osteoporosis include biphosphonates. Follow-up: People with diagnosed cases of osteoporosis or at high risk for fracture should have regular bone mineral density test. For patients eligible for Medicare, routine testing is allowed once every 2 years. Testing frequency can be increased to one year for patients who have rapidly progressing disease, those who are receiving or discontinuing medical therapy to restore bone mass, or have additional risk factors. Procedure Note Brayden Rodriguez MD - 07/07/2021 Examination: Bone Density Axial Exam Date/Time: 07/07/2021 9:52 AM Reason For Exam: Postmenopausal, osteoporosis screening Comparison: None Findings: DEXA bone densitometry The bone mineral density (BMD) was determined bydual-energy x-ray absorptiometry, the results are as follows: AP Lumbar Spine L1 through L4 BMD Patient (GM/[facility]): 1.068 T-Score (Standard deviations from young adult peak bonedensity): 0.2 Right femoral neck: BMD Patient (GM/[facility]): 0.714 T-Score (Standard deviations from young adult peak bonedensity): -1.2 Total Right femur: BMD Patient (GM/SQCM): 0.894 T-Score (Standard deviations from young adult peak bonedensity): -0.4 Recommendations: All patients should ensure an adequate intake of dietary calcium andvitamin D. The NOF recommend adults under the age of 50 need 1000 mg ofcalcium and 400-800 IU of vitamin D daily. Effective therapy for theprevention and treatment of osteoporosis include biphosphonates. Follow-up: People with diagnosed cases of osteoporosis or at high risk for fractureshould have regular bone mineral density test. For patients eligible forMedicare, routine testing is allowed once every 2 years. Testing frequencycan be increased to one year for patients who have rapidly progressingdisease, those who are receiving or discontinuing medical therapy torestore bone mass, or have additional risk factors. IMPRESSION: WHO Classification: osteopenia. FRAX: 0.3% chance of hip fracture and 5.3% chance of major osteoporoticfracture over the next 10 years. Referred By: CAROL GARCIA Interpreted By: Brayden Rodriguez MD, 07/07/2021 10:17 AM Carol Garcia DO DEXA Final Result * CT HEAD WO CON (06/11/2020 3:27 PM DRIER TAKE OFF TENDER) Anatomical Region Laterality Modality Head Computed Tomogra phy 06/11/2020 3:34 PM DRIER TAKE OFF TENDER Impressions 06/11/2020 3:36 PM DRIER TAKE OFF TENDER IMPRESSION: No definite CT evidence for acute intracranial abnormality. Please note that CT is not sensitive for the detection of acute ischemia. Interpreted By: Adrián Ragsdale MD, 06/11/2020 3:34 PM Narrative 06/11/2020 3:36 PM DRIER TAKE OFF TENDER EXAMINATION: CT of the head CLINICAL HISTORY: Pain after fall COMPARISON: None TECHNIQUE: CT examination of the head without contrast ??was performed with axial images obtained. ??A radiation dose lowering technique was used for this procedure, which may include, but is not limited to, dose reduction technique, automated exposure control, the use of iterative reconstruction, ALARA (As Low As Reasonably Achievable) techniques, and Image Gently techniques. FINDINGS: There is no evidence of acute intracranial hemorrhage, abnormal extra-axial collections, intracranial mass effect, or midline shift. The ventricles and extra-axial/subarachnoid spaces are unremarkable. The lo-white matter differentiation is grossly preserved. There is no definite CT evidence to suggest acute territorial infarction. The calvarium is unremarkable, without evidence of fracture. The visualized mastoid air cells, paranasal sinuses, and orbits are grossly unremarkable. Procedure Note Adrián Ragsdale MD - 06/11/2020 EXAMINATION: CT of the head CLINICAL HISTORY: Pain after fall COMPARISON: None TECHNIQUE: CT examination of the head without contrast was performed withaxial images obtained. A radiation dose lowering technique was used forthis procedure, which may include, but is not limited to, dose reductiontechnique, automated exposure control, the use of iterativereconstruction, ALARA (As Low As Reasonably Achievable) techniques, andImage Gently techniques. FINDINGS: There is no evidence of acute intracranial hemorrhage, abnormalextra-axial collections, intracranial mass effect, or midline shift. Theventricles and extra-axial/subarachnoid spaces are unremarkable. Thegray-white matter differentiation is grossly preserved. There is nodefinite CT evidence to suggest acute territorial infarction. Thecalvarium is unremarkable, without evidence of fracture. The visualizedmastoid air cells, paranasal sinuses, and orbits are grossly unremarkable. IMPRESSION: No definite CT evidence for acute intracranial abnormality. Please note that CT is not sensitive for the detection of acute ischemia. Interpreted By: Adrián Ragsdale MD, 06/11/2020 3:34 PM [address] Garcia DO CT Final Result * XR ELBOW RT M3V (06/11/2020 3:27 PM DRIER TAKE OFF TENDER) Anatomical Region Laterality Modality Elbow Radiographic Noelle ging 06/11/2020 3:36 PM DRIER TAKE OFF TENDER Impressions 06/11/2020 3:38 PM DRIER TAKE OFF TENDER IMPRESSION: Negative. Interpreted By: Adrián Ragsdale MD, 06/11/2020 3:36 PM Narrative 06/11/2020 3:38 PM DRIER TAKE OFF TENDER EXAMINATION: XR ELBOW RT M3V HISTORY: Pain after fall DATE: 06/11/2020 3:14 PM COMPARISON: None TECHNIQUE: AP, oblique and lateral views FINDINGS: No acute fracture identified. ??No dislocation. ??No joint effusion. ??Joint space unremarkable. Procedure Note Adrián Ragsdale MD - 06/11/2020 EXAMINATION: XR ELBOW RT M3V HISTORY: Pain after fall DATE: 06/11/2020 3:14 PM COMPARISON: None TECHNIQUE: AP, oblique and lateral views FINDINGS: No acute fracture identified. No dislocation. No jointeffusion. Joint space unremarkable. IMPRESSION: Negative. Interpreted By: Adrián Ragsdale MD, 06/11/2020 3:36 PM us Carol Garcia DO GENERAL IMAGING Final Result * CORONAVIRUS (COVID 19) [facility] (05/13/2020 11:29 AM DRIER TAKE OFF TENDER) CORONAVIRUS SARS COV 2 PCR (RESP) NOT DETECTED NOT DETECTED [facility] Comment: A Not Detected (negative) test result for this test means that SARS- CoV-2 RNA was not present in the specimen above the limit of detection. A negative result does not rule out the possibility of COVID-19 and should not be used as the sole basis for treatment or patient management decisions. ??If COVID-19 is still suspected, based on exposure history together with other clinical findings, re-testing should be considered in consultation with public health authorities. Laboratory test results should always be considered in the context of clinical observations and epidemiological data in making a final diagnosis and patient management decisions. ?? Please review the Fact Sheets and FDA authorized labeling available for health care providers and patients using the following websites: https://www.[employer].me.[employer]/home/Covid-19/HCP/[facility]/fact- sheet.html https://www.[employer]/home/Covid-19/Patients/ [facility]/fact-sheet.html This test has been authorized by the FDA under an Emergency Use Authorization (EUA) for use by authorized laboratories. Due to the current public health emergency, [facility] is receiving a high volume of samples from a wide variety of swabs and media for COVID-19 testing. In order to serve patients during this public health crisis, samples from appropriate clinical sources are being tested. Negative test results derived from specimens received in non-commercially manufactured viral collection and transport media, or in media and sample collection kits not yet authorized by FDA for COVID-19 testing should be cautiously evaluated and the patient potentially subjected to extra precautions such as additional clinical monitoring, including collection of an additional specimen. Methodology: ??Nucleic Acid Amplification Test (NAAT) includes RT-PCR or TMA ?? Additional information about COVID-19 can be found at the [facility] website: www.[employer]iovascular Systems/Covid19. NASOPHARYNGEAL SWAB / Unknown 05/13/2020 11:29 AM DRIER TAKE OFF TENDER 05/14/2020 10:16 AM DRIER TAKE OFF TENDER Allyson Pena NP MICROBIOLOGY - GENERAL ORDE CECI Final Result [facility] [address] [phone] * GLUCOSE BLOOD, QNT (02/12/2020) GLUCOSE 96 mg/dL [facility] 02/12/2020 Carol Garcia DO LABORATORY Final Result [facility] [address] [place] [address], [place] [phone] * COLONOSCOPY GENERIC (12/20/2019) 12/20/2019 Narrative 12/20/2019 Ordered by an unspecified provider. us Documents Scanned SCANNING Final Result * CULTURE STREP A (12/08/2015 3:33 PM CDT) SPEC DESCRIPTION THROAT 12/08/2015 4:37 PM CDT [facility] SPECIAL REQUESTS NO SPECIAL REQUEST 12/08/2015 4:37 PM CDT [facility] CULTURE RESULT NO STREPTOCOCCUS PYOGENES (GROUP A) ISOLATED 12/10/2015 11:30 AM CDT [facility] THROAT SWAB / Unknown 12/08/2015 3:33 PM CDT 12/08/2015 4:36 PM CDT us Generic Conversion Md [facility] - GENERAL ORDERABLES Final Result [facility] [address] [place] [address], [place] [phone] * RAPID STREP A (12/08/2015 3:33 PM CDT) SPECIMEN TYPE THROAT 12/08/2015 3:27 PM CDT [facility] RAPID STREP TEST NEGATIVE NEGATIVE 12/08/2015 3:45 PM CDT [facility] Comment: TESTING PERFORMED AT [address] ??[id number] KAITLIN AHUJA M.D., SUPERVISOR [employer]KE [employer] THROAT SWAB / Unknown 12/08/2015 3:33 PM CDT 12/08/2015 3:36 PM CDT us Generic Conversion Md [facility] - GENERAL ORDERABLES Final Result [facility] [address] [id number], * MG SCREENING ANMOL DIGI (05/13/2014 12:00 AM DRIER TAKE OFF TENDER) Anatomical Region Laterality Modality Breast Bilateral Mammography 05/13/2014 05/13/2014 Narrative 07/06/2017 4:53 PM DRIER TAKE OFF TENDER negative Procedure Note , Generic Conversion, - 03/01/2018 negative Carol Garcia DO MAMMO Final Result Visit Diagnoses Diagnosis Start Date Nasal congestion Other diseases of nasal cavity and sinuses 12/08/2015 Encounter for screening for lipoid disorders Screening for lipoid disorders 07/06/2017 Encounter for screening for diabetes mellitus Screening for diabetes mellitus 07/06/2017 Anemia Anemia, unspecified 07/06/2017 Annual physical exam Routine general medical examination at a health care facility 09/04/2018 Screening for colon cancer Special screening for malignant neoplasms, colon 09/04/2018 Concentration deficit Attention or concentration deficit 09/04/2018 Need for tmdflabetd-vznmkwc-cxcfuafqo (Tdap) vaccine Need for prophylactic vaccination with combined hqhngaocvg-ndkvvnl-ifvffryeq (DTP) vaccine 09/04/2018 Acute non-recurrent frontal sinusitis 04/19/2019 Vertigo Dizziness and giddiness 02/12/2020 Encounter for screening laboratory testing for COVID-19 virus 05/13/2020 Encounter for screening laboratory testing for COVID-19 virus 05/13/2020 Right elbow pain Pain in joint, upper arm 06/11/2020 Fall, initial encounter 06/11/2020 Fall, initial encounter 06/11/2020 Injury of head, initial encounter 06/11/2020 Right elbow pain Pain in joint, upper arm 06/11/2020 Fall, initial encounter 06/11/2020 Injury of head, initial encounter 06/11/2020 Right elbow pain Pain in joint, upper arm 09/08/2020 Olecranon bursitis of right elbow Olecranon bursitis 09/08/2020 Need for prophylactic vaccination against viral disease Need for prophylactic vaccination and inoculation against other viral diseases 09/15/2020 Need for prophylactic vaccination against viral disease Need for prophylactic vaccination and inoculation against other viral diseases 11/05/2020 Post-menopausal Asymptomatic postmenopausal status (age-related) (natural) 05/11/2021 Screening for osteoporosis Special screening for osteoporosis 05/11/2021 Post-menopausal Asymptomatic postmenopausal status (age-related) (natural) 07/07/2021 Screening for osteoporosis Special screening for osteoporosis 07/07/2021 COVID-19 virus infection 09/02/2021 Acute recurrent maxillary sinusitis Acute maxillary sinusitis 09/02/2021 COVID-19 virus infection 09/14/2021 Elbow pain, chronic, right 08/25/2022 Lateral epicondylitis of right elbow Lateral epicondylitis of elbow 09/16/2022 Elbow pain, chronic, right 09/16/2022 Rotator cuff syndrome of right shoulder Disorders of bursae and tendons in shoulder region, unspecified 09/16/2022 Lateral epicondylitis Lateral epicondylitis of elbow 09/27/2022 Right elbow pain Pain in joint, upper arm 09/27/2022 Lateral epicondylitis Lateral epicondylitis of elbow 10/18/2022 Right elbow pain Pain in joint, upper arm 10/18/2022 Lateral epicondylitis Lateral epicondylitis of elbow 10/27/2022 Right elbow pain Pain in joint, upper arm 10/27/2022 Lateral epicondylitis Lateral epicondylitis of elbow 11/17/2022 Right elbow pain Pain in joint, upper arm 11/17/2022 Lateral epicondylitis of right elbow Lateral epicondylitis of elbow 11/24/2022 Lateral epicondylitis of right elbow Lateral epicondylitis of elbow 12/29/2022 Elbow pain, chronic, right 12/29/2022 Lateral epicondylitis of right elbow Lateral epicondylitis of elbow 02/09/2023 Elbow pain, chronic, right 02/09/2023 Encounter for screening mammogram for malignant neoplasm of breast Other screening mammogram 09/28/2023 Hair loss Alopecia, unspecified 04/19/2024 Care Teams Professor Of Sociology Relationship Specialty Start Date End Date Carol Garcia DO [address] [place] [address] PCP - General FAMILY PRACTICE 07/19/17
[2024-06-03 19:06] VITALS: BP 133/77; PULSE 63; RESP 18; TEMP 36.6; O2SAT 100
--- NOTE | 2024-06-03 20:09 | ED.URI ---
HPI - URI/Sore Throat General Chief Complaint: Upper Respiratory Infection Stated Complaint: SINUS / COUGH / Heavy Chest History of Present Illness HPI Narrative: Patient presents with her daughter, grand children. She is complaining cough, wheezing, sore throat, runny nose. She reports symptoms have been present for 3 days. She denies any shortness of breath or chest pain. She has been taking pifz-jkg-inyzmta cold medicine for her symptoms with poor relief. She is unsure if she has been running a fever. She states that she does have a cough, but it is minimally productive. She voices no other concerns or complaints today Related Data Home Medications ?Medication ?Instructions ?Recorded ?Confirmed ?Last Taken ?Type ergocalciferol (vitamin D2) 1,250 50,000 unit PO WEEKLY 12/13/19 05/08/23 12/13/19 History mcg (50,000 unit) capsule estradiol 1 mg tablet 1 mg PO DAILY 12/13/19 05/08/23 12/13/19 History multivitamin,jt-kxta-kvxzrqpd 1 tablet PO DAILY 12/13/19 05/08/23 12/18/19 History (Complete Multivitamin tablet) sertraline 50 mg tablet 50 mg PO DAILY 12/13/19 05/08/23 12/19/19 History valacyclovir 500 mg tablet 500 mg PO DAILY 12/13/19 05/08/23 12/19/19 History cetirizine 10 mg tablet (Zyrtec) 10 mg PO DAILY 05/08/23 05/08/23 Unknown History Allergies Allergy/AdvReac Type Severity Reaction Status Date / Time codeine Allergy Mild Headache Verified 06/03/24 19:45 Review of Systems Review of Systems: All systems reviewed & are unremarkable except as noted in HPI and below Constitutional: Constitutional: Reports no additional constitutional complaints and Reports lethargy ENT: Reports system reviewed and no additional complaints, except as documented, Reports nasal congestion, Reports nasal discharge and Reports sore throat Cardiovascular: Cardiovascular: Reports no additional cardiovascular complaints Respiratory: Respiratory: Reports no additional respiratory complaints, Reports cough and Reports wheezing Gastrointestinal: Gastrointestinal: Reports no additional gastrointestinal complaints PMFSH Past Medical History Medical History Arthritis Exam Const: General: cooperative, no acute distress, alert and awake Orientation/consciousness: oriented to person, oriented to place and oriented to time HENMT: Head: normal to inspection Mouth: Yes moist mucous membranes Throat: posterior oropharynx abnormal erythema Resp: Effort & Inspection: normal respiratory effort and able to speak in complete sentences Auscultation: clear to auscultation bilaterally, no crackles, no rales, no rhonchi and wheezes scattered wheezes ( mild) Cardio: Palpation: normal PMI Rate: regular rate Rhythm: regular rhythm Heart sounds: S1 normal heart sound present and S2 normal heart sound present Neuro: General: oriented to person, oriented to place and oriented to time Cranial nerves: Yes CN's II-XII intact bilaterally Psych: Appearance: grossly normal Thought process: Normal thought process present Insight: Good insight present (Psych) Judgement: Good judgement present (Psych) Course Course Level of Care: Express Care Visit Vital Signs Vital signs: Vital Signs Temperature 97.9 F 06/03/24 19:06 Pulse Rate 63 06/03/24 19:06 Respiratory Rate 18 06/03/24 19:06 Blood Pressure 133/77 06/03/24 19:06 Pulse Oximetry 100 06/03/24 19:06 Oxygen Delivery Room Air 06/03/24 19:06 Temperature 97.9 F 06/03/24 19:06 Pulse Rate 63 06/03/24 19:06 Respiratory Rate 18 06/03/24 19:06 Blood Pressure 133/77 06/03/24 19:06 Pulse Oximetry 100 06/03/24 19:06 Oxygen Delivery Room Air 06/03/24 19:06 MDM - URI/Sore Throat MDM Narrative Medical decision making narrative: patient in no respiratory distress, does have mild wheezes. Start prednisone, albuterol. Negative flu, negative COVID, negative strep. Culture pending. Emergency department precautions discussed. Discharge instructions reviewed with patient, as well as provided in writing per nursing staff. The instructions also include specific and strict return/GO TO THE ER as well as f/u information. All questions have been answered, and the patient deny any further questions with discharge and discharge plan. Some parts of this dictation were generated by voice recognition software and may contain typographical and/or grammatical inaccuracies. Differential Diagnosis Differential diagnosis: Likely upper respiratory infection, sinusitis, viral infection and bronchitis Medical Records Attestation: I reviewed the patient's medical records. Lab Data Attestation: I reviewed the patient's lab results. Labs: Lab Results 06/03/24 06/03/24 Range/Units 20:12 20:13 POC Influenza A Ag Negative (Negative) POC Influenza B Ag Negative (Negative) POC SARS CoV-2 Ag Negative (Negative) POC Grp A Strep Screen Negative (Negative) Discharge Plan Discharge Clinical Impression: Upper respiratory infection Qualifiers: URI type: unspecified viral URI Qualified Code(s): J06.9 - Acute upper respiratory infection, unspecified Patient Disposition: Home, Self-Care Condition: Stable Instructions: Antibiotic Form, Acute Cough (ED) Additional Instructions: take medication as prescribed. Follow with primary care provider. Emergency department for new or worsened symptoms Patient Language: [place] Prescriptions: New prednisone 50 mg tablet 50 mg PO DAILY Qty: 5 0RF albuterol sulfate [Ventolin HFA] 90 mcg/actuation HFA aerosol inhaler 2 puff inhalation QID PRN (Reason: shortness of breath or wheezing) Qty: 8.5 0RF benzonatate 200 mg capsule 200 mg PO TID PRN (Reason: cough) Qty: 30 0RF No Action cetirizine [Zyrtec] 10 mg Tablet 10 mg PO DAILY valacyclovir 500 mg tablet 500 mg PO DAILY estradiol 1 mg tablet 1 mg PO DAILY ergocalciferol (vitamin D2) 1,250 mcg (50,000 unit) capsule 50,000 unit PO WEEKLY sertraline 50 mg tablet 50 mg PO DAILY Complete Multivitamin Tablet 1 tablet PO DAILY Follow-up/Referrals: Jose,Carol Jeffrey MD [Primary Care Provider] - 1 Week Stand Alone Forms: Work/School Release IP Time of Disposition: 20:11
[2024-06-03 20:14] LABS: EDINFLUASCREEN Negative (Negative); EDINFLUBSCREEN Negative (Negative); EDSTREPNEGPOS1 Negative (Negative)
[2024-06-03 20:14] LABS: EDCOVIDSCREEN Negative (Negative)
== END 2024-06-03 20:22 | disposition home or self-care (01) ==
PROVIDERS: Emergency Provider Nurse Practitioner Family; PCP Family Medicine
DX: J06.9 Acute upper respiratory infection, unspecified (principal); Z20.822 Contact with and (suspected) exposure to COVID-19; M19.90 Unspecified osteoarthritis, unspecified site
CPT/HCPCS: 87081; 87426; 87804; 87880; 99213; G0463